=== PATIENT | male | born 1935 | race Caucasian/White ===

== ENCOUNTER 2019-12-09 17:18 | Inpatient (IN) | payer MEDICARE, OTHER ==
[~2019-12-09] VITALS: Ht 172.7 cm; Wt 90.3 kg
[2019-12-09] MEDS ORDERED: ROSU20TA32 PO (17:37)
[2019-12-09] MEDS ORDERED: BENA20TA9 PO (17:37)
[2019-12-09] MEDS ORDERED: GLIM1TAB18 PO (17:37)
[2019-12-09] MEDS ORDERED: METO25TA4 PO (17:37)
[2019-12-09] MEDS ORDERED: MECL-159 PO (17:37)
[2019-12-09] MEDS ORDERED: PIOG15TA8 PO (17:37)
--- NOTE | 2019-12-09 17:40 | NUR ---
DIZZY WITH NASUSEA AND VOMITING SINCE THIS MORNING. patient a/ox4, breathing even and unlabored, no sob noted. Needs attended, kept comfortable.
[2019-12-09 17:55] LABS: BASOPHILS % (AUTO) 0.5 % (0.0-2.0); EOSINOPHILS % (AUTO) 0.8 % (0.0-6.0); HEMATOCRIT 45 % (39-51); HEMOGLOBIN 14.7 g/dL (13.5-17.5); LYMPHOCYTES # (AUTO) 1.4 /CMM (0.8-4.8); MEAN CORPUSCULAR HGB CONC 33 g/dl (31.0-36.0); MEAN CORPUSCULAR VOLUME 90 fL (80-96); MONOCYTES # (AUTO) 0.5 /CMM (0.1-1.30); MONOCYTES % (AUTO) 6.4 % (2.0-12.0); NEUTROPHILS # (AUTO) 5.4 /CMM (1.8-8.9); NEUTROPHILS % (AUTO) 73.3 % (43.0-81.0); PLATELET COUNT (AUTO) 238 /CMM (150-450); RED BLOOD CELL COUNT(AUTO) 4.96 MIL/uL (4.5-6.0); WHITE BLOOD COUNT (AUTO) 7.3 K/uL (4.3-11.0)
[2019-12-09] MEDS ORDERED: IV NS 0.9% 500 ML BAG IV ONE (18:00)
[2019-12-09 18:04] LABS: CALCIUM, SERUM 9.2 mg/dL (8.5-10.1); CARBON DIOXIDE 29 mmol/L (21-32); CHLORIDE 103 mmol/L (98-107); CREATININE 1.3 mg/dL (0.6-1.3); GLUCOSE 133 mg/dL (74-106); POTASSIUM 4.2 mmol/L (3.5-5.1); SODIUM SERUM 140 mmol/L (136-145); UREA NITROGEN, BLOOD 16 mg/dL (7-18)
[2019-12-09] MEDS ORDERED: MECLIZINE HCL 25 MG TABLET ONE (18:22)
[2019-12-09] MEDS ORDERED: MECLIZINE HCL 12.5 MG TABLET PO ONE (18:30)
--- NOTE | 2019-12-09 19:09 | NUR ---
ENDORSED TO SENIA CHAWLA FOR WILI.
[2019-12-09] MEDS ORDERED: LORAZEPAM INJ 2 MG/ML VIAL IV ONE (20:00)
[2019-12-09] MEDS ORDERED: IV NS 0.9% 1,000 ML IV ONE (20:00)
[2019-12-09] MEDS ORDERED: ONDANSETRON HCL/PF 4 MG/2 ML VIAL IV ONE (20:00)
[2019-12-09] MEDS ORDERED: ONDANSETRON HCL/PF 4 MG/2 ML VIAL ONE (20:01)
[2019-12-09] MEDS ORDERED: LORAZEPAM INJ 2 MG/ML VIAL ONE (20:03)
[2019-12-09] MEDS ORDERED: ASPIRIN 81 MG TAB.CHEW PO ONE (21:00)
--- NOTE | 2019-12-09 21:01 | NUR ---
REC'D NEG COVID RESULTS. AWARE
[2019-12-09] MEDS ORDERED: IOHEXOL-350 100 ML VIAL IV ONE (21:06)
[2019-12-09 21:30] VITALS: BP 151/80
--- NOTE | 2019-12-09 21:30 | NUR ---
R D MANAGERPIPE WASHER NOTES RECEIVED THIS 84 YO OLD MALE FROM ER PER [facility]ETH VIA ACLS PROTOCOL,ALERT,ORIENTED X4,WITH DIAGNOSIS OF VERTIGO/DIZZINESS.SAMOAN,SPEAK ITALIAN.NO KNOWN ALLERGY,NO SKIN ISSUES.AMBULATES WITH ASSIST DUE TO DIZZINESS.SALINE LOCK LEFT AC INTACT AND PATENT.WITH KNOWN HX OF FALL DURING THE PAST MONTHS DUE TO DIZZINESS.BED ALARM TRIGGERED.BED ON LOWEST POSITION AND LOCKED.CALL LIGHT IN REACH.,AWAITING ADMISSION ORDERS FROM NIGHT HOSPITALIST KADY INIGUEZWILL CONTINUE TO MONITOR. Addendum: 12/10/19 at 0502 by MICHELLE JARVIS RN RECEIVED PATIENT AT 2245 ON THE UNIT THIS TIME
--- NOTE | 2019-12-09 22:18 | NUR ---
REPORT GIVEN TO ED CHAWLA FOR WILI PT WILL BE TRANSPORTED TO 3RD FLOOR
[2019-12-09] MEDS ORDERED: ASPIRIN 81 MG TAB.CHEW ONE (22:43)
--- NOTE | 2019-12-09 22:54 | NUR ---
PT TRANSPORTED TO 3RD FLOOR
[2019-12-10] VITALS: BP 138/82
[2019-12-10] MEDS ORDERED: IV NS 0.9% 1,000 ML IV PRN (02:07)
[2019-12-10] MEDS ORDERED: MAGNESIUM HYDROXIDE 30 ML UDC PO PRN (02:30)
[2019-12-10] MEDS ORDERED: ZOLPIDEM TARTRATE 5 MG TABLET PO PRN (02:30)
[2019-12-10] MEDS ORDERED: Z GUARD REMEDY 2 OZ OINT TP PRN (02:30)
[2019-12-10] MEDS ORDERED: HYDROCODONE/APAP 5/325MG TABLET PO PRN (02:30)
[2019-12-10] MEDS ORDERED: ACETAMINOPHEN 325 MG TABLET PO PRN (02:30)
[2019-12-10] MEDS ORDERED: MAG HYDROX/AL HYDROX/SIMETH 30 ML UDC PO PRN (02:30)
[2019-12-10] MEDS: ENOXAPARIN SODIUM 40 MG/0.4 ML DISP.SYRIN SQ SCH ×2 (02:58→21:21)
--- NOTE | 2019-12-10 02:58 | NUR ---
BATTERY ASSEMBLER NOTES SR WITH PAC ON TELE MONITOR,RATE-70.STARTED ON LOVENOX 40MGSQ,GIVEN ON RIGHT UPPER QUADRANT FOR DVT SCORE OF 3,ALONG WITH DVT PUMP ON BILATERAL LOWER EXTREMITIES ORDERED.
--- NOTE | 2019-12-10 03:00 | NUR ---
ECOMMERCE MARKETING MANAGER NOTES STARTED ON IVF NS 75ML/HR RATE ORDERED VIA IV PUMP.
[2019-12-10 04:00] VITALS: BP 141/83
--- NOTE | 2019-12-10 06:57 | NUR ---
DIRECTOR SHOPPER MARKETING NOTES SLEPT WELL AT NIGHT.ENCOURAGED BEDREST FOR SAFETY AND USE OF CALL LIGHT AT ALL TIMES FOR ASSISTANCE.IVF INFUSING,CALL LIGHT IN REACH,NEEDS ATTENDED.WILL ENDORSE TO DAY NURSE FOR WILI.
--- NOTE | 2019-12-10 07:20 | NUR ---
RN OPENING NOTES RECEIVED PATIENT IN BED RESTING. NOT IN ANY FORM OF DISTRESS. NO SOB. DENIED PAIN OR DOSCOMFORT AT THIS TIME. IV ACCESS INTACT AND PATENT. KEPT PATIENT SAFE AND COFMROTABLE. BED IN LOW/ LOCKED POSITION. SIDERAILS UP X 2,CALL LIGHT IN REACH. WILL CONT TO MONITOR ACCORDINGLY.
[2019-12-10 07:27] LABS: BASOPHILS % (AUTO) 0.6 % (0.0-2.0); EOSINOPHILS % (AUTO) 1.3 % (0.0-6.0); HEMATOCRIT 41 % (39-51); HEMOGLOBIN 13.3 g/dL (13.5-17.5); LYMPHOCYTES # (AUTO) 1.7 /CMM (0.8-4.8); LYMPHOCYTES % (AUTO) 27.9 % (20.0-44.0); MEAN CORPUSCULAR HGB CONC 33 g/dl (31.0-36.0); MEAN CORPUSCULAR VOLUME 90 fL (80-96); MONOCYTES # (AUTO) 0.6 /CMM (0.1-1.30); MONOCYTES % (AUTO) 10.3 % (2.0-12.0); NEUTROPHILS # (AUTO) 3.6 /CMM (1.8-8.9); NEUTROPHILS % (AUTO) 59.9 % (43.0-81.0); PLATELET COUNT (AUTO) 219 /CMM (150-450); RED BLOOD CELL COUNT(AUTO) 4.49 MIL/uL (4.5-6.0)
[2019-12-10 07:44] LABS: ALBUMIN 3.1 g/dL (3.4-5.0); BILIRUBIN,TOTAL 0.3 mg/dL (0.2-1.0); CALCIUM, SERUM 8.5 mg/dL (8.5-10.1); CREATININE 1.3 mg/dL (0.6-1.3); POTASSIUM 4.2 mmol/L (3.5-5.1); TOTAL PROTEIN, SERUM 6.6 g/dL (6.4-8.2)
[2019-12-10 07:49] LABS: THYROID STIMULATING HORMONE 0.942 uIU/mL (0.358-3.74)
[2019-12-10 08:00] VITALS: BP 160/75
[2019-12-10] MEDS: PANTOPRAZOLE 40 MG TABLET.DR PO SCH (08:13)
[2019-12-10] MEDS: PIOGLITAZONE HCL 15 MG TABLET PO SCH (08:15)
[2019-12-10] MEDS: GLIMEPIRIDE 1 MG TABLET PO SCH (08:16)
[2019-12-10] MEDS: ONDANSETRON HCL/PF 4 MG/2 ML VIAL IVP PRN ×2 (08:22→21:32)
[2019-12-10] MEDS ORDERED: BENAZEPRIL HCL 20 MG TABLET PO SCH (09:00)
[2019-12-10] MEDS ORDERED: METOPROLOL SUCCINATE 25 MG TAB.SR.24H PO SCH (09:00)
[2019-12-10] MEDS: MECLIZINE HCL 25 MG TABLET PO PRN ×2 (11:13→21:32)
--- NOTE | 2019-12-10 11:33 | NUR ---
CALLED DR PISANO AND VERIFIED THAT HE IS THE PRIMARY MD. PER MD, "YES, ILL BE THERE".
[2019-12-10 11:53] VITALS: BP 167/94
[2019-12-10] MEDS: AMLODIPINE BESYLATE 10 MG TABLET PO SCH (13:02)
[2019-12-10 13:05] LABS: MAGNESIUM 2.4 mg/dL (1.8-2.4); PHOSPHORUS 3.1 mg/dL (2.5-4.9)
[2019-12-10 16:00] VITALS: BP 160/89
[2019-12-10] MEDS: BENAZEPRIL HCL 20 MG TABLET PO SCH (17:02)
[2019-12-10] MEDS ORDERED: GADOTERATE MEGLUMINE 10 MMOL/20 ML VIAL IV ONE (17:23)
--- NOTE | 2019-12-10 19:30 | NUR ---
RN CLOSING NOTES PATIENT IN STABLE CONDITION. ALL NEEDS ATTENDED AND PROVIDED. ALL DUE MEDS GIVEN ORDERED. KEPT PATIENT SAFE AND COMFORTABLE. BED IN LOW/LOCKED POSIITON, SIDERAILS UP X 2, CALL LIGHT IN REACH. BED ALARM ON. ENDORSED ACCORDINGLY
--- NOTE | 2019-12-10 20:00 | NUR ---
CNC MANUFACTURING ENGINEER NOTES RECEIVED SITTING ON EDGE OF BED,A/O X4,GERMAN ,SPEAK ANDORRAN,NO SOB.PATIENT CLAIMED HE HAS STILL EPISODE OF OF DIZZINESS.SALINE LOCK LEFT AC INTACT AND PATENT.AMBULATE WITH ASSIST.FALL RISK,BED ALARM,DVT PUMP IN USED WHILE ON BED,ON LOVENOX FOR DVT SCORE OF 3.BED ALARM,BED ON LOWEST POSITION AND LOCK.CALL LIGHT IN REACH,NEEDS ANTICIPATED.
[2019-12-10 20:39] VITALS: BP_SYST 156; BP_SYST 161; BP_DIAS 84
[2019-12-10] MEDS: ATORVASTATIN 40 MG TABLET PO SCH (21:22)
[2019-12-10] MEDS: DOXAZOSIN MESYLATE (1 MG) 1 MG TABLET PO SCH (21:26)
--- NOTE | 2019-12-10 21:30 | NUR ---
MS RN NOTES C/O VOMITING,MEDICATED WITH ZOFRAN 4MG IV ORDERED.
--- NOTE | 2019-12-10 21:32 | NUR ---
TAILINGS MAN NOTES C/O DIZZINESS,MECLIZINE 25MG PO GIVEN ORDERED.
--- NOTE | 2019-12-10 22:55 | NUR ---
GENERAL PRACTICE NOTES SR -73 ON TELE MONITOR.ENDORSED TO FÉLIX CHAWLA FOR WILI.
--- NOTE | 2019-12-10 23:00 | NUR ---
ABSTRACT CLERK NOTES RECEIVED PATIENT FOR CONTINUITY OF CARE FROM NURSE MICHELLE.
--- NOTE | 2019-12-10 23:05 | NUR ---
MESH MAN NOTES TRIED CALLING DR. VELASCO WHICH LEADS US TO A VOICE MAIL OF JUS [facility]. NOTIFY DR. VELASCO THROUGHT PERSONAL NUMBER.
[2019-12-11 00:18] VITALS: BP 138/86
[2019-12-11 04:38] VITALS: BP 141/80
[2019-12-11 06:43] LABS: BASOPHILS % (AUTO) 0.5 % (0.0-2.0); EOSINOPHILS % (AUTO) 1.9 % (0.0-6.0); HEMATOCRIT 41 % (39-51); HEMOGLOBIN 13.4 g/dL (13.5-17.5); LYMPHOCYTES % (AUTO) 31.2 % (20.0-44.0); MEAN CORPUSCULAR HGB CONC 33 g/dl (31.0-36.0); MEAN CORPUSCULAR VOLUME 90 fL (80-96); MONOCYTES # (AUTO) 0.7 /CMM (0.1-1.30); MONOCYTES % (AUTO) 11.3 % (2.0-12.0); NEUTROPHILS # (AUTO) 3.5 /CMM (1.8-8.9); NEUTROPHILS % (AUTO) 55.1 % (43.0-81.0); PLATELET COUNT (AUTO) 223 /CMM (150-450); RED BLOOD CELL COUNT(AUTO) 4.58 MIL/uL (4.5-6.0); WHITE BLOOD COUNT (AUTO) 6.3 K/uL (4.3-11.0)
--- NOTE | 2019-12-11 06:53 | NUR ---
CELL STRIPPER FINAL CLOSING NOTES ENDORSED PATIENT IN BED, AWAKE, CONSCIOUS, A/O X 4, BREATHING AT ROOM AIR, UNLABORED BREATHING, NO SIGNS OF RESPIRATORY DISTRESS, LAC #22G NS @ 75ML/HR INFUSING WELL, NO COMPLAINTS OF PAIN, SIDE RAILS UP FOR SAFETY.
[2019-12-11 06:56] LABS: ALANINE AMINOTRANSFERASE 12 U/L (12-78); ALBUMIN 3.2 g/dL (3.4-5.0); ALKALINE PHOSPHATASE 30 U/L (46-116); ASPARTATE AMINOTRANSFERASE 14 U/L (15-37); BILIRUBIN,TOTAL 0.3 mg/dL (0.2-1.0); CALCIUM, SERUM 8.6 mg/dL (8.5-10.1); CARBON DIOXIDE 31 mmol/L (21-32); CHLORIDE 108 mmol/L (98-107); CREATININE 1.4 mg/dL (0.6-1.3); GLUCOSE 76 mg/dL (74-106); MAGNESIUM 2.2 mg/dL (1.8-2.4); PHOSPHORUS 2.9 mg/dL (2.5-4.9); POTASSIUM 4.1 mmol/L (3.5-5.1); SODIUM SERUM 146 mmol/L (136-145); TOTAL PROTEIN, SERUM 6.6 g/dL (6.4-8.2); UREA NITROGEN, BLOOD 16 mg/dL (7-18)
--- NOTE | 2019-12-11 07:35 | NUR ---
TELE/RN OPENING NOTES RECEIVED PATIENT ON BED, AWAKE, ALERT AND ORIENTED X 4, BREATHING AT ROOM AIR, NO SIGNS OF RESPIRATORY DISTRESS, LAC #22G NS @ 75ML/HR INFUSING WELL, NO COMPLAINTS OF PAIN, SIDE RAILS UP FOR SAFETY. WILL CONTINUE TO MONITOR.
[2019-12-11] MEDS: GLIMEPIRIDE 1 MG TABLET PO SCH (07:56)
[2019-12-11] MEDS: PANTOPRAZOLE 40 MG TABLET.DR PO SCH (07:56)
[2019-12-11 08:00] VITALS: BP 145/82
[2019-12-11] MEDS: AMLODIPINE BESYLATE 10 MG TABLET PO SCH (08:24)
[2019-12-11] MEDS: CARVEDILOL 6.25 MG TABLET PO SCH ×2 (08:25→22:38)
[2019-12-11] MEDS: BENAZEPRIL HCL 20 MG TABLET PO SCH ×2 (08:25→16:40)
[2019-12-11] MEDS: PIOGLITAZONE HCL 15 MG TABLET PO SCH (08:25)
[2019-12-11 16:00] VITALS: BP 130/59
--- NOTE | 2019-12-11 19:26 | NUR ---
TELE/RN CLOSING NOTES PATIENT IS AWAKE, ALERT AND ORIENTED X4. PATIENT DENIES PAIN AT THIS TIME. PATIENT IN ROOM AIR. PATIENT IN NO RESPIRATORY DISTRESS NOTED AT THIS TIME. SEEN AND EXAMINED BY MD WITH ORDERS MADE AND CARRIED OUT. ALL DUE MEDICATION WAS ORDER. SAFETY PRECAUTION IN PLACED. BED IN LOWEST POSITION AND LOCKED. SIDE RAILS UP X2. CALL LIGHT LIGHT IS WITHIN REACH. WILL CONTINUE TO MONITOR.
--- NOTE | 2019-12-11 19:50 | NUR ---
MS RN NOTES RECEIVED PATIENT IN BED, AWAKE, ALERT AND ORIENTED X 4, NO SIGNS OF ACUTE RESPIRATORY DISTRESS NOTED. BREATHING EVEN AND UNLABORED ON ROOM AIR, , LAC #22G NS @ 75ML/HR INFUSING WELL, DENIES ANY PAIN OR DISCOMFORT. NO COMPLAINTS OF PAIN, SAFETY MEASURES IN PLACE, ASPIRATION PRECAUTION EMPHASIZED. SIDE RAILS UP FOR SAFETY. WILL CONTINUE TO MONITOR ACCORDINGLY.
[2019-12-11 20:00] VITALS: BP 114/68
[2019-12-11] MEDS: DOXAZOSIN MESYLATE (1 MG) 1 MG TABLET PO SCH (22:39)
[2019-12-11] MEDS: ATORVASTATIN 40 MG TABLET PO SCH (22:39)
[2019-12-12] MEDS: PANTOPRAZOLE 40 MG TABLET.DR PO SCH (06:35)
--- NOTE | 2019-12-12 07:27 | NUR ---
RN NOTES ALL NEEDS ATTENDED AND MET. ABLE TO REST AND SLEPT AT INTERVALS. SAFETY MEASURES IN PLACE, CALL LIGHT WITHIN EASY REACH. DENIES ANY PAIN OR DISCOMFORT. ENDORSED TO AM NURSE FOR CONTINUITY OF CARE.
--- NOTE | 2019-12-12 07:30 | NUR ---
MS/RN OPENING NOTE Patient in bed, A&O x 4, mostly Uruguayan speaking but understands and speaks bulgarian. No complaints of any pain and discomfort at this time. No dizziness noted. Breathing even and non-labored on RA, no SOB noted. No cardiac distress noted. IV access noted on L AC #22, patent and intact, and running NS @ 75 ml/hr. No s/s infection, bleeding, or infiltration noted on site. Bed locked to its lowest position, side rails x2 up, instructed pt to use call light when in need of assistance. Will continue current plan of care.
[2019-12-12 08:00] VITALS: BP 119/66
[2019-12-12] MEDS: GLIMEPIRIDE 1 MG TABLET PO SCH (08:23)
[2019-12-12] MEDS: PIOGLITAZONE HCL 15 MG TABLET PO SCH (08:24)
[2019-12-12] MEDS: AMLODIPINE BESYLATE 10 MG TABLET PO SCH (08:24)
[2019-12-12] MEDS: BENAZEPRIL HCL 20 MG TABLET PO SCH (08:25)
[2019-12-12] MEDS: CARVEDILOL 6.25 MG TABLET PO SCH (08:25)
[2019-12-12] MEDS ORDERED: BENA20TA9 PO (09:31)
[2019-12-12] MEDS ORDERED: GLIM1TAB PO (09:31)
[2019-12-12] MEDS ORDERED: [UNRECOGNIZED DRUG - CODE] MC (09:31)
[2019-12-12] MEDS ORDERED: AMLO10TA7 PO (09:31)
[2019-12-12] MEDS ORDERED: ATOR40TA PO (09:31)
[2019-12-12] MEDS ORDERED: CARV6.252 PO (09:31)
[2019-12-12] MEDS ORDERED: PIOG15TA8 PO (09:31)
[2019-12-12] MEDS ORDERED: DOXA1TAB17 PO (09:31)
[2019-12-12] MEDS ORDERED: DAPA5TAB PO (09:31)
[2019-12-12] MEDS ORDERED: ACET325T53 PO (09:31)
[2019-12-12] MEDS ORDERED: ZOLP5TAB2 PO (09:31)
[2019-12-12] MEDS ORDERED: ONDA4VIA23 PO (09:31)
[2019-12-12] MEDS ORDERED: MECL-159 PO (09:31)
[2019-12-12] MEDS ORDERED: PANT40TA2 PO (09:31)
[2019-12-12 12:00] VITALS: BP 108/75
--- NOTE | 2019-12-12 13:00 | NUR ---
MS/RN NOTE Spoke with Dr. Bell, discharge medications printed and faxed to pharmacy, but no response from pharmacy noted. Will continue to try and fax medication list.
--- NOTE | 2019-12-12 15:32 | NUR ---
MS/RN NOTE Patient's discharge medication list faxed to pharmacy, finally completed.
[2019-12-12 16:00] VITALS: BP 123/60
--- NOTE | 2019-12-12 16:45 | NUR ---
MS/PRESS FEEDER NOTE Patient picked up by son and family at 1645. Patient remained stable with no dizziness and unsteady gait. VSS, afebrile, no SOB noted. Breathing even and non-labored on RA. No respiratory or cardiac distress noted. Patient denies any pain and discomfort throughout shift and upon discharge. IV access removed on the L AC #22 with catheter intact. No s/s of bleeding, infection, or infiltration noted on site, placed a clean, dry, dressing and tape to prevent bleeding. Sensation from all peripheral extremities remained intact. Instructed patient and family regarding discharge instructions and answered all their questions to their satisfaction. Patient and family verbalized understanding. Patient left facility safely along with belongings, medications, and hospital documents in hand.
[2019-12-18 12:07] LABS: RENIN, PLASMA 0.541 ng/mL/hr (0.167-5.380)
== END 2019-12-12 18:00 | disposition home health service (06) | DRG 149 ==
LOC: ER 17:18 → TELE 22:30 → MED 12-11 09:14
PROVIDERS: ADMIT Family Medicine; ATTEND Family Medicine
DX: H81.4 Vertigo of central origin (principal); I13.0 Hypertensive heart and chronic kidney disease with heart failure and stage 1 through stage 4 chronic kidney disease, or unspecified chronic kidney disease; Q60.3 Renal hypoplasia, unilateral; G47.33 Obstructive sleep apnea (adult) (pediatric); G40.909 Epilepsy, unspecified, not intractable, without status epilepticus; E11.22 Type 2 diabetes mellitus with diabetic chronic kidney disease; E78.5 Hyperlipidemia, unspecified; J44.9 Chronic obstructive pulmonary disease, unspecified; N18.9 Chronic kidney disease, unspecified; E11.51 Type 2 diabetes mellitus with diabetic peripheral angiopathy without gangrene; I50.9 Heart failure, unspecified; Z79.84 Long term (current) use of oral hypoglycemic drugs; Z79.899 Other long term (current) drug therapy; E11.65 Type 2 diabetes mellitus with hyperglycemia; F43.10 Post-traumatic stress disorder, unspecified; E78.00 Pure hypercholesterolemia, unspecified; H91.90 Unspecified hearing loss, unspecified ear; N40.0 Benign prostatic hyperplasia without lower urinary tract symptoms; Z87.442 Personal history of urinary calculi; Z87.11 Personal history of peptic ulcer disease; Z86.73 Personal history of transient ischemic attack (TIA), and cerebral infarction without residual deficits; Z82.49 Family history of ischemic heart disease and other diseases of the circulatory system; H54.7 Unspecified visual loss; I70.0 Atherosclerosis of aorta; R26.9 Unspecified abnormalities of gait and mobility; M41.9 Scoliosis, unspecified; M16.0 Bilateral primary osteoarthritis of hip; M17.0 Bilateral primary osteoarthritis of knee; N26.1 Atrophy of kidney (terminal); K27.9 Peptic ulcer, site unspecified, unspecified as acute or chronic, without hemorrhage or perforation; H55.00 Unspecified nystagmus; H81.10 Benign paroxysmal vertigo, unspecified ear; H81.02 Meniere's disease, left ear; Z86.69 Personal history of other diseases of the nervous system and sense organs; I67.2 Cerebral atherosclerosis; I25.9 Chronic ischemic heart disease, unspecified
CPT/HCPCS: 36415; 70450-TC; 70496-TC; 70498-TC; 70544-TC; 70553-TC; 71045-TC; 76770-TC; 80048-TC; 80053-TC; 80061-TC; 82088; 82533; 83735-TC; 84100-TC; 84244; 84443-TC; 84484-TC; 85025-TC; 85730-TC; 87081-TC; 93307-TC; A9575; C9803-CS; G0378; J1650; J2060; J2405; J7030; J7040; J7050; J8597; Q9967